=== PATIENT | female | born 1985 | race American Indian/Alaskan Native ===

== ENCOUNTER 2016-11-25 16:33 | Emergency (ER) | payer MEDICAID ==
[2016-11-25 21:04] VITALS: BP 126/87
[2016-11-25] MEDS ORDERED: FLEXERIL PO ONE (21:15)
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
== END 2016-11-25 23:00 | disposition home or self-care (01) ==
LOC: ED 16:33
DX: S16.1XXA Strain of muscle, fascia and tendon at neck level, initial encounter (principal); V49.49XA Driver injured in collision with other motor vehicles in traffic accident, initial encounter; Y93.9 Activity, unspecified; Y92.9 Unspecified place or not applicable; Y99.9 Unspecified external cause status
CPT/HCPCS: 99282